=== PATIENT | female | born 1940 | race Caucasian/White ===

== ENCOUNTER → 2019-10-10 | Outpatient (CLI) | payer OTHER ==
[~2019-10-10] MED LIST: ACETAMINOPHEN325 M1 OR; CIPROFLOXACIN500 M3 PO; HYDROCODON-ACE1 EAC7 OR; LISINOPRIL10 MG PO; NAPROSYN250 MG PO; NORCO 5-325 TA1 EACH PO; PRILOSEC 20 MG20 MG PO; RESTORIL15 MG PO; SIMVASTATIN40 MG PO; TIROSINT75 MCG PO; UNKNOWN BP MED; ZOLPIDEM TARTRA10 MG PO
== END ==
LOC: SJCVCIMAG 07:38
DX: R06.00 Dyspnea, unspecified (principal); I10 Essential (primary) hypertension; E78.5 Hyperlipidemia, unspecified; K21.9 Gastro-esophageal reflux disease without esophagitis; Z79.899 Other long term (current) drug therapy; Z79.82 Long term (current) use of aspirin